=== PATIENT | male | born 1990 | race Caucasian/White ===

== ENCOUNTER 2017-05-09 16:23 | Emergency (ER) | payer BC ==
[2017-05-09 19:53] VITALS: BP 139/70
--- NOTE | 2017-05-09 20:05 | UC ---
Respiratory Complaint HPI - HPI Summary HPI Summary: 26 yo male with cough/runny nose/sore throat and fever/chills/myalgias x 3 days no n/v/d - History of Current Complaint Chief Complaint: UCGeneralIllness Stated Complaint: COUGH, ACHES, DIZZY Time Seen by Provider: 05/09/17 19:50 Hx Obtained From: Patient Onset/Duration: Gradual Onset, Lasting Days Severity Initially: Moderate Severity Currently: Moderate Pain Intensity: 3 Pain Scale Used: 0-10 Numeric Character: Cough: Nonproductive Associated Signs And Symptoms: Positive: Nasal Congestion - Allergies/Home Medications Allergies/Adverse Reactions: Allergies Allergy/AdvReac Type Severity Reaction Status Date / Time No Known Allergies Allergy Verified 05/09/17 19:53 Home Medications: Home Medications Cetirizine* [ZyrTEC 10 MG TAB*] 10 mg PO DAILY 05/09/17 [History Confirmed 05/09] Ibuprofen/Pseudoephedrine HCl [Advil Cold & Sinus Caplet] 1 each PO DAILY [History Confirmed 05/09/17] diPHENhydraMINE PO* [Benadryl PO 50 MG CAP*] 50 mg PO Q6H PRN 05/09/17 [History Confirmed 05/09/17] guaiFENesin ER TAB [Mucinex*] 600 mg PO BID 05/09/17 [History Confirmed 05/09/17 ] PMH/Surg Hx/FS Hx/Imm Hx Previously Healthy: Yes Respiratory History: Asthma - Surgical History Surgical History: None - Family History Known Family History: Positive: Hypertension - Social History Alcohol Use: Occasionally Substance Use Type: None Smoking Status (MU): Never Smoked Tobacco Review of Systems Constitutional: Fever, Chills, Fatigue Skin: Negative Eyes: Negative ENT: Sore Throat, Nasal Discharge Respiratory: Cough Cardiovascular: Negative Gastrointestinal: Negative Genitourinary: Negative Motor: Negative Neurovascular: Negative Musculoskeletal: Myalgia Neurological: Headache Psychological: Negative Is Patient Immunocompromised?: No All Other Systems Reviewed And Are Negative: Yes Physical Exam Triage Information Reviewed: Yes Appearance: Well-Appearing, No Pain Distress, Well-Nourished Vital Signs: Initial Vital Signs Temp 101.4 F 05/09/17 19:48 Pulse 93 05/09/17 19:48 Resp 16 05/09/17 19:48 BP 139/70 05/09/17 19:48 Pulse Ox 100 05/09/17 19:48 Eyes: Positive: Conjunctiva Clear ENT: Positive: Hearing grossly normal, Pharyngeal erythema, Nasal congestion, Nasal drainage, TMs normal, Uvula midline. Negative: Tonsillar swelling, Tonsillar exudate, Trismus, Muffled voice, Hoarse voice, Dental tenderness, Sinus tenderness Dental Exam: Normal Neck: Positive: Supple, Nontender, No Lymphadenopathy Respiratory Exam: Normal Cardiovascular: Positive: RRR, No Murmur, Pulses Normal Musculoskeletal: Positive: ROM Intact, No Edema Neurological: Positive: Alert Psychological: Positive: Decreased Age Appropriate Behavior UC Diagnostic Evaluation - Laboratory O2 Sat by Pulse Oximetry: 100 Respiratory Course/Dx - Course Course Of Treatment: influenza B + - Differential Dx/Diagnosis Provider Diagnoses: influenza Discharge - Discharge Plan Condition: Stable Disposition: HOME Prescriptions: Oseltamivir CAP* [Tamiflu CAP*] 75 mg PO BID #10 cap Patient Education Materials: Influenza (ED) Referrals: No Primary Care Phys,NOPCP [Primary Care Provider] - Additional Instructions: recheck for new or worsening symptoms recheck in not 100% back to normal in one week
== END 2017-05-09 20:34 | disposition home or self-care (01) ==
LOC: UCCORT 16:23
DX: J10.1 Influenza due to other identified influenza virus with other respiratory manifestations (principal)
CPT/HCPCS: 87502; 99202; G0463

== ENCOUNTER 2018-12-27 09:27 | Emergency (ER) | payer BC ==
[2018-12-27 09:47] VITALS: BP 124/75
--- NOTE | 2018-12-27 10:06 | UC ---
Neck Pain HPI - HPI Summary HPI Summary: Patient is 28 year old , who present today to the urgent care with neck pain that started today morning. Left greater than right neck pain and decreased ROM due to pain onset 0430, no known injury; pt had usual activity before onset. He denies any mechanism and woke up with the pain. No numbness and tingling or radicular symptoms.. He took ibuprofen at 4:30 today morning. - History of Current Complaint Chief Complaint: UCBackPain Stated Complaint: NECK PAIN Time Seen by Provider: 12/27/18 09:43 Hx Obtained From: Patient Pain Intensity: 0 - Allergies/Home Medications Allergies/Adverse Reactions: Allergies Allergy/AdvReac Type Severity Reaction Status Date / Time environmental Allergy Sneezing Uncoded 12/27/18 09:48 Home Medications: Home Medications Hydrocodone/Acetaminophen [Vicodin 5-300 mg] 1 tab PO ONCE 12/27/18 [History Confirmed 12/27/18] Ibuprofen TAB* [Motrin TAB* 800 MG] 800 mg PO ONCE 12/27/18 [History Confirmed 12/27/18] Ibuprofen/Diphenhydramine Cit [Advil Pm Caplet] 2 each PO ONCE PRN 12/27/18 [ History Confirmed 12/27/18] PMH/Surg Hx/FS Hx/Imm Hx - Additional Past Medical History Additional PMH: Past Medical History : None Past Surgical History: Ear tubes, right hand ORIF Family History : non contributory Social History : Occasional alcohol, current smoker, no drug use. . Previously Healthy: Yes - Surgical History Surgical History: Yes Surgery Procedure, Year, and Place: t/a, ear tubes x 6, right hand fx with 6 screws and plate - Family History Known Family History: Positive: Hypertension, Non-Contributory - Social History Alcohol Use: Rare Substance Use Type: None Smoking Status (MU): Current Some Day Smoker Review of Systems All Other Systems Reviewed And Are Negative: Yes Constitutional: Positive: Negative. Negative: Fever Skin: Positive: Negative Eyes: Positive: Negative ENT: Positive: Negative Respiratory: Positive: Negative Cardiovascular: Positive: Negative Gastrointestinal: Positive: Negative Genitourinary: Positive: Negative Motor: Positive: Negative Neurovascular: Positive: Negative Musculoskeletal: Positive: Arthralgia - Neck, Decreased ROM - Neck Neurological: Positive: Negative Psychological: Positive: Negative Is Patient Immunocompromised?: No Physical Exam - Summary Physical Exam Summary: Vital Signs Reviewed: Yes A+Ox3, no distress Eyes: Conjunctiva Clear ENT: Hearing grossly normal neck: supple Respiratory: Positive: No respiratory distress, No accessory muscle use Cardiovascular: skin color reflect adequate perfusion Musculoskeletal Exam: LYN x 4 without difficulty Neurological: Positive: Alert, ambulatory without difficulty Psychological: Positive: Normal Response To Family Skin: Positive: no rash, no ecchymosis C-spine: He is standing with her head tilted towards the right side Inspection/palpation: No swelling or deformity noted. No midline tenderness noted. There is tenderness to palpation on the left paraspinal muscles throughout the cervical spine.. There is significant tenderness to palpation on the left trapezius muscle and no tenderness on the left trapezius muscle. Range of motion: Significantly limited and painful range of motion in all planes No instability noted Strength 5/5 Special tests: Byrne test is negative bilaterally, Spurling test is negative bilaterally Neurology: DTRs intact bilaterally, motor and sensory intact Triage Information Reviewed: Yes Vital Signs: Initial Vital Signs Temp 97.9 F 12/27/18 09:39 Pulse 60 12/27/18 09:39 Resp 18 12/27/18 09:39 BP 124/75 12/27/18 09:39 Pulse Ox 99 12/27/18 09:39 Vital Signs Reviewed: Yes Neck Pain Course/Dx - Course Course Of Treatment: During the visit today, we discussed the findings consistent with right neck along with trapezius strain and further plan. He was given 1 dose of Flexeril and 1 Toradol injection intramuscular. I will prescribe the medication(flexeril and naproxen) to the pharmacy . His is with him and will drive him home. Precautions with Flexeril discussed Patient expressed understanding . - Differential Dx/Diagnosis Provider Diagnosis: Torticollis, Trapezius muscle strain Discharge ED - Sign-Out/Discharge Documenting (check all that apply): Patient Departure All imaging exams completed and their final reports reviewed: No Studies - Discharge Plan Condition: Stable Disposition: HOME Prescriptions: Cyclobenzaprine TAB* [Flexeril 10 MG TAB*] 10 mg PO TID PRN 10 Days #30 tab PRN Reason: Spasms Naproxen [Naproxen 500 mg tab] 500 mg PO BID PRN 10 Days #20 tab PRN Reason: Pain - Moderate Patient Education Materials: Spasmodic Torticollis (ED) Forms: *Work Release Referrals: No Primary Care Phys,NOPCP [Primary Care Provider] - [facility] [place] [facility] [Outside] - 2 Days Additional Instructions: Please start taking the medication as prescribed to the pharmacy . Gentle range of motion exercises as demonstrated. Warm compresses to the neck, 15 minutes at a time Don't drive, operate machinery or drink when you're taking Flexeril. Follow up with your primary care doctor in 2 days. Patients blood pressure slightly high in Urgent care today , plan follow up with PCP for better control Return to Urgent care / ER if symptoms get worse. - Billing Disposition and Condition Condition: STABLE Disposition: Home
[2018-12-27] MEDS ORDERED: Ketorolac *IM* INJ* 60 MG/2 ML VIAL IM ONE (10:12)
[2018-12-27] MEDS ORDERED: Cyclobenzaprine TAB* 10 MG PO ONE (10:13)
== END 2018-12-27 10:49 | disposition home or self-care (01) ==
LOC: UCCORT 09:27
DX: M43.6 Torticollis (principal); S46.819A Strain of other muscles, fascia and tendons at shoulder and upper arm level, unspecified arm, initial encounter; F17.210 Nicotine dependence, cigarettes, uncomplicated; Z91.09 Other allergy status, other than to drugs and biological substances; X58.XXXA Exposure to other specified factors, initial encounter; Y92.9 Unspecified place or not applicable
CPT/HCPCS: 96372; 99212; A9270-GY; G0463; J1885